=== PATIENT | male | born 1960 | race Caucasian/White ===

== ENCOUNTER 2016-05-21 06:05 | Day surgery (SDC) | payer OTHER ==
[2016-05-21] MEDS ORDERED: Lactated Ringers 1,000 ML IV SCH (06:30)
[2016-05-21] MEDS ORDERED: ROBINUL IV ONE (07:00)
[2016-05-21] MEDS ORDERED: DIPRIVAN 200 MG/20 ML IV ONE (07:00)
[2016-05-21] MEDS ORDERED: Ketamine HCl 50 MG/ML IV ONE (07:00)
--- NOTE | 2016-05-21 10:17 | OP ---
SURGERY DATE/TIME: 05/21/2016 0658 PREOPERATIVE DIAGNOSIS: Screening colonoscopy. POSTOPERATIVE DIAGNOSIS: Sigmoid colon polyp x1. PROCEDURE: Colonoscopy. SURGEON: Elias Ortega M.D. ANESTHESIA: MAC by Олег White CRNA. ESTIMATED BLOOD LOSS: Minimal. SPECIMENS: Hot forceps snare polypectomy from the sigmoid colon x1. DESCRIPTION OF PROCEDURE: After informed written consent was obtained, the patient was taken to the endoscopy suite. He underwent monitored anesthesia and digital rectal exam showed normal sphincter tone and no internal lesions. The scope was inserted in the rectum and sequentially the entire colonic mucosa was traversed. The level of cecum was reached and verified with direct visualization of ileocecal valve. Upon withdrawal there was a fairly large sessile polyp in the sigmoid colon. Attempts were made to remove it with hot forceps initially but it was unable to be grasped in its entirety due to size and firmness of the lesion. Therefore I switched to snare. The entire lesion was grasped inside the snare and cautery was used to remove the lesion. The lesion appeared to be entirely removed with good hemostasis at the base. Polyp was retrieved in a trap and sent for pathology testing. The area was inspected afterwards and appeared to be hemostatic with adequate removal of the lesion. Further withdrawal revealed no other lesions. Retroflexion was performed prior to withdrawal and was within normal limits. The scope was removed and the patient was transferred to the recovery room in good condition.
[2016-05-21 15:01] VITALS: O2SAT 97
[2016-05-21 15:04] VITALS: BP 148/98; PULSE 55
== END 2016-05-21 09:00 | disposition home or self-care (01) ==
LOC: SDC 06:05
PROVIDERS: ATTEND Family Medicine
PROC: 0DBN8ZX Excision of Sigmoid Colon, Via Natural or Artificial Opening Endoscopic, Diagnostic (ICD-10-PCS; principal; 2016-05-21)
DX: D12.5 Benign neoplasm of sigmoid colon (principal); I10 Essential (primary) hypertension; E11.9 Type 2 diabetes mellitus without complications; K21.9 Gastro-esophageal reflux disease without esophagitis
CPT/HCPCS: 00810; 36415; 82962; J2704

== ENCOUNTER 2020-10-18 06:52 | Day surgery (SDC) | payer OTHER ==
[2020-10-18] MEDS ORDERED: Lactated Ringers 1,000 ML IV SCH (07:30)
[2020-10-18] MEDS ORDERED: DIPRIVAN 200 MG/20 ML IV ONE ×3 (08:21→08:56)
[2020-10-18 10:02] VITALS: BP 151/84; PULSE 63; O2SAT 97
--- NOTE | 2020-10-18 10:42 | OP ---
SURGERY DATE/TIME: 10/18/2020 0838 PREOPERATIVE DIAGNOSIS: History of colon polyps. POSTOPERATIVE DIAGNOSIS: Rectal polyp x1. PROCEDURE: Colonoscopy. SURGEON: Elias Ortega M.D. ANESTHESIA: MAC by Lalo Marcum CRNA. ESTIMATED BLOOD LOSS: Minimal. SPECIMENS: Hot forceps polypectomy from the rectum. DESCRIPTION OF PROCEDURE: After informed written consent was obtained, the patient was taken to the endoscopy suite. He was placed in left lateral decubitus position. Anesthesia was titrated to desired level of consciousness. Digital rectal exam showed normal sphincter tone and no internal lesions. The scope was inserted into the rectum and easily passed to the level of the cecum which was reached and verified with direct visualization of the ileocecal valve. Upon withdrawal no mucosal abnormalities were encountered until the proximal rectum just distal to the third valve of Bates. A small sessile polyp was grasped with hot forceps cauterized and removed in its entirety with no bleeding and complete removal of the lesion. Retroflexion was performed and showed no internal lesions. The scope was removed and the patient was transferred to the recovery room in good condition. He will follow up in a week for pathology.
== END 2020-10-18 09:53 | disposition home or self-care (01) ==
LOC: SDC 06:52
PROVIDERS: ATTEND Family Medicine
DX: Z09 Encounter for follow-up examination after completed treatment for conditions other than malignant neoplasm (principal); Z86.010 Personal history of colon polyps; D12.8 Benign neoplasm of rectum; E11.9 Type 2 diabetes mellitus without complications; I10 Essential (primary) hypertension; Z79.899 Other long term (current) drug therapy
CPT/HCPCS: 82947; 88305; J2704